=== PATIENT | female | born 1985 | race Caucasian/White ===

== ENCOUNTER 2023-05-12 08:37 | Emergency (ER) | payer OTHER, SELFPAY ==
[2023-05-12 08:49] VITALS: BP 144/84; PULSE 82; RESP 15; TEMP 36.3; O2SAT 97; BMI 23.9
--- NOTE | 2023-05-12 09:13 | ED.GENADULT ---
HPI - General Adult General Chief complaint: General Medical Stated complaint: medication Time Seen by Provider: 05/12/23 09:07 Source: patient Mode of arrival: ambulatory Limitations: no limitations History of Present Illness HPI narrative: 37-year-old female with a history of opiate use disorder currently on 90 mg of methadone daily presents to the ER with complaints of medication refill. Patient reports she transferred to a residential program on Sunday and is unable to establish a methadone clinic here in [place] until Sunday. She does have her last dose letter and her last dose was yesterday. She has no complaints. Related Data Allergies Allergy/AdvReac Type Severity Reaction Status Date / Time Penicillins Allergy Unknown Verified 05/12/23 09:15 Sulfa (Sulfonamide Allergy Unknown Verified 05/12/23 09:15 Antibiotics) Review of Systems Review of Systems: Yes all other systems are reviewed and are negative Constitutional: Constitutional: Reports no additional constitutional complaints, Denies body ache(s), Denies chills, Denies fever(s), Denies headache(s) and Denies weakness Eyes: Eyes: Reports no additional eye complaints and Denies change in vision ENT: Reports system reviewed and no additional complaints, except as documented, Denies dizziness, Denies headache(s), Denies nasal congestion, Denies nasal discharge and Denies neck pain Cardiovascular: Cardiovascular: Reports no additional cardiovascular complaints, Denies chest pain, Denies leg edema and Denies dyspnea Respiratory: Respiratory: Reports no additional respiratory complaints, Denies cough and Denies dyspnea Gastrointestinal: Gastrointestinal: Reports no additional gastrointestinal complaints, Denies abdominal pain, Denies diarrhea, Denies nausea and Denies vomiting Genitourinary: Genitourinary: Reports no additional female genitourinary complaints and Denies urinary incontinence Musculoskeletal: Musculoskeletal: Reports no additional musculoskeletal complaints, Denies back pain, Denies arthralgias, Denies joint swelling, Denies neck pain, Denies numbness and Denies tingling Integumentary/Breasts: Skin/Breast: Reports system reviewed and no additional complaints, except as docu and Denies rash Neurologic: Reports system reviewed and no additional complaints, except as documented, Denies dizziness, Denies headache(s), Denies numbness, Denies tingling and Denies weakness PMFSH Past Medical History Attestation statement: The following information was validated with the patient. Source: old records reviewed and nursing notes reviewed Social History Social History Alcohol intake: former Smoked in Last 30 Days: No Use of substances other than those prescribed or required for medical reasons: No Advance Directives: Yes Advance Directives Information Provided: No Advance Directives on File: No Physical Exam ED Vital Signs: Vital Signs - 24 hr 05/12/23 08:49 Temperature 97.3 F Pulse Rate 82 Respiratory Rate 15 Blood Pressure 144/84 H Pulse Oximetry 97 Oxygen Delivery Method Room Air BMI result Body Mass Index 23.9 Const General: cooperative, healthy appearing, comfortable and no acute distress Orientation/consciousness: patient oriented x3 Limitations: no limitations HENMT Head: Yes normal to inspection Ears: hearing grossly normal bilaterally Eyes General: appearance normal, both eyes and all related structures Pupils: Equal, round and reactive pupils present Neck Neck: Yes normal visual inspection Chest Chest palpation & inspection: normal inspection of the chest Resp Effort & Inspection: normal respiratory effort Skin General skin exam: no rashes or lesions noted Neuro General: patient oriented x3 and moves all extremities Cranial nerves: Yes Equal, round and reactive pupils present Cognition (Neuro): normal cognition Gait exam (Neuro): Normal gait present Medications Administered Discontinued Medications Generic Name Dose Route Start Last Admin Trade Name Paulinoq PRN Reason Stop Dose Admin Methadone HCl 90 mg 05/12/23 09:15 05/12/23 09:40 Methadone Hcl 20 Mg/2 Ml Oral.Conc PO 05/12/23 09:16 90 mg ONCE ONE Administration Medical Decision Making Medical Decision Making MDM Narrative: 37-year-old female with a history of opiate use disorder currently on methadone here seeking methadone dose. Confirm dose with last dose letter Patient has plan to follow-up on Sunday with a methadone clinic to continue dosing in this area She has no physical complaints Will dose with 90 mg of methadone Differential Diagnosis Differential Diagnoses: The differential diagnosis associated with the presentation includes OUD, med refill Discharge Plan Discharge Clinical Impression: Medication refill Patient Disposition: Home, Self-Care Instructions: Medicine Refill (ED) Stand Alone Forms: Substance Abuse Outpt Detox, Work/School Release Interventions: ED Discharge Assessment Last Done: 05/12/23 09:50 Discharge Date/Time: 05/12/23 09:54
--- NOTE | 2023-05-12 09:29 | HE.PHANOTE ---
Methadone verification Patient brought in methadone last dose letter from [facility]. Patient last received methadone 90 mg on 05/11/23.
== END 2023-05-12 09:54 | disposition home or self-care (01) ==
PROVIDERS: Emergency Provider Emergency Medicine
DX: F11.20 Opioid dependence, uncomplicated (principal); Z76.0 Encounter for issue of repeat prescription
CPT/HCPCS: 99283; 99284

== ENCOUNTER 2023-05-13 09:23 | Emergency (ER) | payer OTHER, SELFPAY ==
[2023-05-13 09:41] VITALS: BP 124/80; RESP 72; TEMP 36.6; O2SAT 97; BMI 23.3
--- NOTE | 2023-05-13 12:36 | ED.GENADULT ---
HPI - General Adult General Chief complaint: General Medical Stated complaint: Medication? was here yesterday Time Seen by Provider: 05/13/23 11:52 Source: patient and RN notes reviewed Mode of arrival: ambulatory Limitations: no limitations History of Present Illness HPI narrative: This is a [id number], with a past medical history of opioid use disorder on methadone, presenting to the emergency department for methadone dosing. Pt was seen here yesterday for methadone dosing as well. She was just admitted to the [facility] and was enrolled into another methadone clinic however was told to come to the ER yesterday as her paperwork was not completed to start her methadone at the new methadone program. Pt feeling well, no fevers, chills, chest pain, SOB, abdominal pain, nausea, vomiting or diarrhea. No other complaints or concerns at this time. MD complaint: methadone dose Relieving factors: none Exacerbating factors: none Associated symptoms: denies other symptoms Treatments prior to arrival: none Related Data Allergies Allergy/AdvReac Type Severity Reaction Status Date / Time Penicillins Allergy Unknown Verified 05/13/23 09:40 Sulfa (Sulfonamide Allergy Unknown Verified 05/13/23 09:40 Antibiotics) Review of Systems Review of Systems: Yes all other systems are reviewed and are negative [facility] Social History Social History Alcohol intake: former Advance Directives: Yes Advance Directives Information Provided: Yes Advance Directives on File: No Physical Exam ED Vital Signs: Vital Signs - 24 hr 05/13/23 09:41 05/13/23 12:39 Temperature 98 F Respiratory Rate 72 H 17 Blood Pressure 124/80 Pulse Oximetry 97 Oxygen Delivery Method Room Air BMI result Body Mass Index 23.3 Const Other: General: Awake, alert, and oriented X3. No acute distress. HEENT: Normal inspection CVS: Normal heart rate and rhythm. Pulses normal. Respiratory: No respiratory distress Skin: Warm, dry, no rashes noted to exposed skin. Normal skin color. Normal skin turgor. Extremities: Normal to inspection Neuro: Oriented X 3. No motor deficit. No sensory deficit. Medications Administered Discontinued Medications Generic Name Dose Route Start Last Admin Trade Name Freq PRN Reason Stop Dose Admin Methadone HCl 90 mg 05/13/23 12:38 05/13/23 12:51 Methadone Hcl 20 Mg/2 Ml Oral.Conc PO 05/13/23 12:39 90 mg ONCE ONE Administration Medical Decision Making Medical Decision Making MDM Narrative: 37 y/o F presenting for methadone dosing. Pt brought in sealed last dose letter given to her yesterday from the ER. Confirmed dosing of Methadone 90mg PO. Medicated in ER with methadone dose, given last dose letter. Advised to f/u with methadone clinic tomorrow for her next dose. Pt feeling well, no current complaints. VSS. Differential Diagnosis Differential Diagnoses: The differential diagnosis associated with the presentation includes methadone dependency, opiate use disorder, medication refill Discharge Plan Discharge Clinical Impression: Methadone dependence, Medicine refill Patient Disposition: Home, Self-Care Instructions: Opioid Use Disorder (ED) Additional Instructions: please follow up with your methadone clinic tomorrow. Stand Alone Forms: Work/School Release Interventions: ED Discharge Assessment Last Done: 05/13/23 13:07 Discharge Date/Time: 05/13/23 13:07
[2023-05-13 12:39] VITALS: RESP 17
== END 2023-05-13 13:07 | disposition home or self-care (01) ==
PROVIDERS: Emergency Provider Emergency Medicine
DX: F11.20 Opioid dependence, uncomplicated (principal); Z76.0 Encounter for issue of repeat prescription
CPT/HCPCS: 99282